=== PATIENT | male | born 1965 | race African-American/Black ===

== ENCOUNTER 2017-06-26 17:29 | Emergency (ER) | payer MEDICAID, OTHER ==
[~2017-06-26] VITALS: Ht 180.3 cm; Wt 136.0 kg
[~2017-06-26 17:29] MED LIST: AMLO2.5T2 PO; ASPI-986 PO; HCTZ; LOSARTAN
[2017-06-26] MEDS ORDERED: MORPHINE SULFATE 10 MG/ML CPJ IM ONE (20:00)
[2017-06-26] MEDS ORDERED: DEXAMETHASONE 4MG/ML 1ML VIAL IV ONE (20:00)
[2017-06-26 21:30] VITALS: BP 173/84
== END 2017-06-26 21:35 | disposition home or self-care (01) ==
LOC: ER 17:48
DX: M54.5 Low back pain (principal); M19.90 Unspecified osteoarthritis, unspecified site; I10 Essential (primary) hypertension; Z88.6 Allergy status to analgesic agent; Z88.8 Allergy status to other drugs, medicaments and biological substances; Z79.82 Long term (current) use of aspirin; W07.XXXA Fall from chair, initial encounter; Y93.89 Activity, other specified; Y92.89 Other specified places as the place of occurrence of the external cause; Y99.8 Other external cause status
CPT/HCPCS: 72100; 96372; 96374; 99284; J1100; J2270; Z7610

== ENCOUNTER 2018-02-04 16:05 | Inpatient (IN) | payer MEDICAID ==
[~2018-02-04] VITALS: Ht 180.3 cm; Wt 143.0 kg
[2018-02-04] MEDS ORDERED: MORPHINE SULFATE 4 MG/ML CPJ (NOT FOR IM USE) IV STA (17:32)
[2018-02-04] MEDS ORDERED: ONDANSETRON HCL 4MG/2ML INJ IV STA (17:32)
[2018-02-04] MEDS ORDERED: NITROGLYCERIN 0.4MG TABLET SL SL PRN (17:45)
[2018-02-04] MEDS ORDERED: ASPIRIN 81MG TABLET PO ONE (17:45)
[2018-02-04] MEDS ORDERED: NITROGLYCERIN OINT 1GM/INCH UDPKT TD ONE (17:45)
[2018-02-04 18:22] LABS: BASOPHILS % 0.5 % (0.0-2.0); EOSINOPHILS % 1.5 % (0.0-5.0); HEMATOCRIT. 44.4 % (42.0-52.0); HEMOGLOBIN. 15.1 g/dL (14.0-18.0); LYMPHOCYTES % 24.2 % (20.0-50.0); MEAN CORPUSCULAR HEMOGLOBIN 30.9 pg (28.0-32.0); MEAN CORPUSCULAR VOLUME 90.9 fL (80.0-94.0); MEAN PLATELET VOLUME 7.7 fl (7.4-10.4); MONOCYTES % 7.1 % (2.0-8.0); NEUTROPHILS % 66.7 % (40.0-76.0); PLATELET 280 x1000/uL (130-400); RED BLOOD CELL COUNT 4.89 mill/uL (4.7-6.1)
[2018-02-04 18:25] LABS: CHLORIDE 102 mEq/L (98-107)
[2018-02-04 18:28] LABS: INR 1.1; PARTIAL THROMBOPLASTIN TIME 28.4 sec (23.4-31.0); PROTHROMBIN TIME 10.8 sec (9.1-11.1)
[2018-02-04 19:24] LABS: *AMPHETAMINES SCREEN URINE NEGATIVE (NEGATIVE); *BARBITURATES SCREEN URINE NEGATIVE (NEGATIVE); *BENZODIAZEPINES SCREEN URINE NEGATIVE (NEGATIVE); CANNABINOID URINE SCREEN NEGATIVE (NEGATIVE)
[2018-02-04 19:25] LABS: *COCAINE SCREEN URINE NEGATIVE (NEGATIVE); METHADONE URINE SCREEN NEGATIVE (NEGATIVE); OPIATES URINE SCREEN NEGATIVE (NEGATIVE); PHENCYCLIDINE URINE SCREEN NEGATIVE (NEGATIVE)
[2018-02-04] MEDS ORDERED: ACETAMINOPHEN 650MG/20.3ML UDC GT PRN (20:30)
[2018-02-04] MEDS ORDERED: MAGNESIUM/ALUMINUM HYDROXIDE/SIMETHICONE 30ML UDC PO PRN (20:30)
[2018-02-04] MEDS ORDERED: ACETAMINOPHEN 325MG TABLET PO PRN (20:30)
[2018-02-04] MEDS ORDERED: CLONIDINE 0.1MG TABLET PO PRN (20:30)
[2018-02-04] MEDS ORDERED: POTASSIUM CHLORIDE 20MEQ TABLET SR PO NR (20:30)
[2018-02-04] MEDS ORDERED: ACETAMINOPHEN 650MG SUPP PR PRN (20:30)
[2018-02-04] MEDS ORDERED: ONDANSETRON HCL 4MG/2ML INJ IV PRN (20:30)
[2018-02-04 22:10] VITALS: BP 146/67
[2018-02-04 23:00] VITALS: BP 146/67
[2018-02-04] MEDS ORDERED: LOSA-20 PO (23:59)
[2018-02-04] MEDS ORDERED: MELO-106 PO (23:59)
[2018-02-05] VITALS: BP_SYST 127; BP_SYST 130; BP_DIAS 59; BP_DIAS 76
[2018-02-05] MEDS ORDERED: CHOL500063 PO (00:01)
[2018-02-05] MEDS ORDERED: CYCL10TA7 PO (00:02)
[2018-02-05] MEDS ORDERED: TRAM50TA3 PO (00:05)
[2018-02-05 00:38] LABS: CREATINE KINASE 471 IU/L (39-308)
[2018-02-05 00:39] LABS: CREATINE KINASE MB FRACTION 2.3 ng/mL (0.5-3.6)
[2018-02-05 04:00] VITALS: BP 116/48
[2018-02-05] MEDS: HYDROCODONE/ACETAMINOPHEN 5/325MG TABLET PO PRN ×2 (05:52→19:56)
[2018-02-05 07:15] LABS: BASOPHILS % 0.7 % (0.0-2.0); EOSINOPHILS % 2.1 % (0.0-5.0); HEMATOCRIT. 40.2 % (42.0-52.0); HEMOGLOBIN. 13.9 g/dL (14.0-18.0); MEAN CORPUSCULAR HEMOGLOBIN 31.5 pg (28.0-32.0); MEAN CORPUSCULAR VOLUME 91.2 fL (80.0-94.0); MEAN PLATELET VOLUME 7.6 fl (7.4-10.4); MONOCYTES % 8.6 % (2.0-8.0); NEUTROPHILS % 65.6 % (40.0-76.0); PLATELET 254 x1000/uL (130-400); RED CELL DISTRIBUTION WIDTH 13.8 % (11.6-14.6)
[2018-02-05 07:48] LABS: CHLORIDE 103 mEq/L (98-107)
[2018-02-05 07:59] LABS: LDL CHOLESTEROL 89 mg/dL (5-100)
[2018-02-05 08:00] LABS: CREATINE KINASE 363 IU/L (39-308); CREATINE KINASE MB FRACTION 1.7 ng/mL (0.5-3.6); HDL CHOLESTEROL 34 mg/dL (40-59); T4 FREE 0.91 ng/dL (0.76-1.46)
[2018-02-05 09:47] LABS: CLARITY URINE CLEAR (CLEAR); COLOR URINE YELLOW (YELLOW); KETONES URINE NEGATIVE (NEGATIVE); LEUKOCYTE ESTERASE URINE NEGATIVE (NEGATIVE); NITRITE URINE NEGATIVE (NEGATIVE); OCCULT BLOOD URINE NEGATIVE (NEGATIVE); PH URINE 6.5 (4.5-8.0); PROTEIN URINE NEGATIVE (NEGATIVE); SPECIFIC GRAVITY URINE 1.017 (1.005-1.030); UROBILINOGEN URINE 0.2 E.U./dL (0.2-1.0)
[2018-02-05] MEDS ORDERED: POTASSIUM CHLORIDE 20MEQ TABLET SR PO NR (13:00)
[2018-02-05] MEDS: CHOLECALCIFEROL (D3) 1000 UNIT TABLET PO SCH (15:34)
[2018-02-05 20:00] VITALS: BP 160/81
[2018-02-05] MEDS: METOPROLOL TARTRATE 25MG TABLET PO SCH (20:25)
[2018-02-05] MEDS: ATORVASTATIN CALCIUM 10MG TABLET PO SCH (20:25)
[2018-02-06] VITALS: BP 141/57
[2018-02-06 04:00] VITALS: BP 124/76
[2018-02-06 07:41] LABS: BASOPHILS % 0.9 % (0.0-2.0); EOSINOPHILS % 2.6 % (0.0-5.0); HEMATOCRIT. 40.6 % (42.0-52.0); HEMOGLOBIN. 14.3 g/dL (14.0-18.0); LYMPHOCYTES % 29.9 % (20.0-50.0); MEAN CORPUSCULAR HEMOGLOBIN 31.8 pg (28.0-32.0); MEAN CORPUSCULAR VOLUME 90.5 fL (80.0-94.0); MONOCYTES % 8.2 % (2.0-8.0); NEUTROPHILS % 58.4 % (40.0-76.0); PLATELET 218 x1000/uL (130-400); RED BLOOD CELL COUNT 4.48 mill/uL (4.7-6.1); RED CELL DISTRIBUTION WIDTH 13.7 % (11.6-14.6)
[2018-02-06 07:53] LABS: CHLORIDE 104 mEq/L (98-107)
[2018-02-06 08:00] VITALS: BP 165/80
[2018-02-06] MEDS: POTASSIUM CHLORIDE 20MEQ TABLET SR PO SCH (08:55)
[2018-02-06] MEDS: METOPROLOL TARTRATE 25MG TABLET PO SCH ×2 (08:56→20:55)
[2018-02-06] MEDS: CHOLECALCIFEROL (D3) 1000 UNIT TABLET PO SCH (08:56)
[2018-02-06] MEDS: HYDROCODONE/ACETAMINOPHEN 5/325MG TABLET PO PRN ×2 (08:57→20:57)
[2018-02-06] MEDS ORDERED: LOSARTAN POTASSIUM 25 MG TABLET PO SCH (09:00)
[2018-02-06 12:00] VITALS: BP 149/71
[2018-02-06] MEDS: LOSARTAN POTASSIUM 25 MG TABLET PO SCH (12:49)
[2018-02-06 16:00] VITALS: BP 145/68
[2018-02-06 20:00] VITALS: BP 182/71
[2018-02-06] MEDS: ATORVASTATIN CALCIUM 10MG TABLET PO SCH (20:56)
[2018-02-07] VITALS (7 sets, daily range): BP systolic 143–167; BP diastolic 64–77
[2018-02-07 07:46] LABS: BASOPHILS % 0.6 % (0.0-2.0); EOSINOPHILS % 3.8 % (0.0-5.0); HEMATOCRIT. 40.2 % (42.0-52.0); LYMPHOCYTES % 36.3 % (20.0-50.0); MEAN CORPUSCULAR HEMOGLOBIN 31.8 pg (28.0-32.0); MEAN CORPUSCULAR VOLUME 91.3 fL (80.0-94.0); MEAN PLATELET VOLUME 8.1 fl (7.4-10.4); MONOCYTES % 7.1 % (2.0-8.0); NEUTROPHILS % 52.2 % (40.0-76.0); PLATELET 244 x1000/uL (130-400); RED CELL DISTRIBUTION WIDTH 13.7 % (11.6-14.6)
[2018-02-07 07:54] LABS: CHLORIDE 105 mEq/L (98-107)
[2018-02-07] MEDS: LOSARTAN POTASSIUM 25 MG TABLET PO SCH (08:52)
[2018-02-07] MEDS: POTASSIUM CHLORIDE 20MEQ TABLET SR PO SCH (08:54)
[2018-02-07] MEDS: CHOLECALCIFEROL (D3) 1000 UNIT TABLET PO SCH (08:54)
[2018-02-07] MEDS: METOPROLOL TARTRATE 25MG TABLET PO SCH (08:54)
[2018-02-07] MEDS: HYDROCODONE/ACETAMINOPHEN 5/325MG TABLET PO PRN (09:02)
[2018-02-07 10:10] LABS: HEPATITIS B SURFACE ANTIGEN NEGATIVE
[2018-02-07 10:37] LABS: HEPATITIS B CORE AB IGM NEGATIVE
[2018-02-07 10:39] LABS: HEPATITIS A AB IGM NEGATIVE (NEGATIVE)
[2018-02-08] MEDS ORDERED: LOSARTAN POTASSIUM 50 MG TABLET PO SCH (09:00)
== END 2018-02-07 18:15 | disposition home or self-care (01) | DRG 203 ==
LOC: ER 16:05 → 5WST 17:56 → EDBEDREQ 17:57 → EDBEDREQTM 17:57 → EDRESERV 19:42 → ENRESERV 19:42 → CANRESERV 19:42
PROVIDERS: ADMIT Internal Medicine; ATTEND Internal Medicine
PROC: 5A09357 Assistance with Respiratory Ventilation, Less than 24 Consecutive Hours, Continuous Positive Airway Pressure (ICD-10-PCS; principal; 2018-02-05)
PROC: 5A09357 Assistance with Respiratory Ventilation, Less than 24 Consecutive Hours, Continuous Positive Airway Pressure (ICD-10-PCS; 2018-02-06)
PROC: 5A09357 Assistance with Respiratory Ventilation, Less than 24 Consecutive Hours, Continuous Positive Airway Pressure (ICD-10-PCS; 2018-02-07)
DX: M94.0 Chondrocostal junction syndrome [Tietze] (principal); I24.9 Acute ischemic heart disease, unspecified; E66.01 Morbid (severe) obesity due to excess calories; K76.0 Fatty (change of) liver, not elsewhere classified; I10 Essential (primary) hypertension; E87.6 Hypokalemia; M19.90 Unspecified osteoarthritis, unspecified site; Z96.659 Presence of unspecified artificial knee joint; G47.30 Sleep apnea, unspecified; E55.9 Vitamin D deficiency, unspecified; R74.0 Nonspecific elevation of levels of transaminase and lactic acid dehydrogenase [LDH]; E78.5 Hyperlipidemia, unspecified; I25.2 Old myocardial infarction; Z88.9 Allergy status to unspecified drugs, medicaments and biological substances; Z68.41 Body mass index [BMI] 40.0-44.9, adult
CPT/HCPCS: 36415; 71045; 76700; 80048; 80053; 80061; 80076; 80305; 81003; 82550; 82553; 82693; 83735; 83880; 84100; 84439; 84443; 84481; 84484; 85025; 85379; 85610; 85730; 86705; 86709; 86803; 87340; 93005; 93306; 94660; 96374; 96375; 99291; J2270; J2405; A4315

== ENCOUNTER 2024-11-17 15:33 | Emergency (ER) | payer MEDICAID, OTHER ==
[~2024-11-17] VITALS: Ht 180.3 cm; Wt 141.0 kg
[~2024-11-17 15:33] MED LIST changes: +ALOG25TA PO; -AMLO2.5T2 PO; +AMLO5TAB5 PO; +APIX5TAB MT; +ASPI-1497 PO; -ASPI-986 PO; +ATOR20TA65 PO; +CHOL500063 PO; +CYCL10TA21 PO; +FURO40TA5 PO; -HCTZ; +LOSA25TA26 PO; -LOSARTAN; +MELO-106 PO; +METO25TA6 MT; +TIRZ5PEN3; +TRAM50TA3 PO
[2024-11-17 15:41] VITALS: O2SAT 97
[2024-11-17 17:58] VITALS: BP 138/69; PULSE 66; RESP 16; TEMP 36.9; O2SAT 98
== END 2024-11-17 18:00 | disposition home or self-care (01) ==
LOC: ER 15:33
DX: S50.11XA Contusion of right forearm, initial encounter (principal); I25.2 Old myocardial infarction; I10 Essential (primary) hypertension; E11.9 Type 2 diabetes mellitus without complications; M19.90 Unspecified osteoarthritis, unspecified site; I48.91 Unspecified atrial fibrillation; Z88.6 Allergy status to analgesic agent; Z79.899 Other long term (current) drug therapy; X58.XXXA Exposure to other specified factors, initial encounter; Y93.89 Activity, other specified; Y92.89 Other specified places as the place of occurrence of the external cause; Y99.8 Other external cause status
CPT/HCPCS: 93971; 99284

== ENCOUNTER 2024-12-06 18:49 | Emergency (ER) | payer MEDICAID, OTHER ==
[~2024-12-06] VITALS: Ht 182.9 cm; Wt 150.0 kg
[2024-12-06 18:52] VITALS: O2SAT 97
[2024-12-06] MEDS: ACETAMINOPHEN 325MG TABLET PO ONE (20:57)
[2024-12-06 21:49] VITALS: BP 159/90; PULSE 85; RESP 20; TEMP 36.7; O2SAT 99
== END 2024-12-06 21:50 | disposition home or self-care (01) ==
LOC: ER 18:49
DX: M25.512 Pain in left shoulder (principal); M54.2 Cervicalgia; E11.9 Type 2 diabetes mellitus without complications; I10 Essential (primary) hypertension; I25.2 Old myocardial infarction; Z79.899 Other long term (current) drug therapy; Z88.6 Allergy status to analgesic agent
CPT/HCPCS: 71045; 73030; 99284

== ENCOUNTER 2025-02-24 21:33 | Emergency (ER) | payer OTHER ==
[~2025-02-24] VITALS: Ht 180.3 cm; Wt 143.0 kg
[~2025-02-24 21:33] MED LIST changes: -AMLO5TAB5 PO; +AMLO5TAB6 PO
[2025-02-24 21:48] VITALS: O2SAT 98
[2025-02-25] MEDS: LIDOCAINE HCL 1% 20ML VIAL INFIL ONE (00:30)
[2025-02-25] MEDS: ACETAMINOPHEN 325MG TABLET PO ONE (00:49)
[2025-02-25] MEDS: TETANUS, DIPHTHERIA, PERTUSSIS VAC/PF 0.5ML (>10YR OLD) IM ONE (01:03)
[2025-02-25] MEDS ORDERED: AMOX1TAB16 MT (01:26)
[2025-02-25 01:38] VITALS: BP 135/61; PULSE 85; RESP 16; TEMP 37; O2SAT 100
== END 2025-02-25 01:40 | disposition home or self-care (01) ==
LOC: ER 21:33
DX: S20.311A Abrasion of right front wall of thorax, initial encounter (principal); I10 Essential (primary) hypertension; I25.2 Old myocardial infarction; E11.9 Type 2 diabetes mellitus without complications; Z79.899 Other long term (current) drug therapy; Z88.6 Allergy status to analgesic agent; W54.0XXA Bitten by dog, initial encounter; Y93.89 Activity, other specified; Y92.89 Other specified places as the place of occurrence of the external cause; Y99.8 Other external cause status
CPT/HCPCS: 99283; 90715; 90471; J2003; Z7610

== ENCOUNTER 2025-04-28 15:46 | Emergency (ER) | payer OTHER ==
[~2025-04-28] VITALS: Ht 180.3 cm; Wt 141.0 kg
[~2025-04-28 15:46] MED LIST changes: +AMOX1TAB16 MT
[2025-04-28 16:14] VITALS: O2SAT 98
[2025-04-28 17:05] LABS: BASOPHILS % 0.5 % (0.0-2.0); EOSINOPHILS % 1.1 % (0.0-5.0); HEMATOCRIT. 45.9 % (42.0-52.0); HEMOGLOBIN. 15.3 g/dL (14.0-18.0); LYMPHOCYTES % 22.1 % (20.0-50.0); MEAN PLATELET VOLUME 7.5 fl (7.4-10.4); MONOCYTES % 6.5 % (2.0-8.0); NEUTROPHILS % 69.8 % (40.0-76.0); PLATELET 282 x1000/uL (130-400); RED BLOOD CELL COUNT 5.06 mill/uL (4.7-6.1); RED CELL DISTRIBUTION WIDTH 14.4 % (11.6-14.6)
[2025-04-28 17:15] LABS: INR 1.1
[2025-04-28 17:20] LABS: CREATININE 1.1 mg/dL (0.6-1.3); UREA NITROGEN BLOOD 12 mg/dL (9-23)
[2025-04-28 17:21] LABS: TROPONIN I HIGH SENSITIVITY 9 ng/L (3.0-53)
[2025-04-28] MEDS: ASPIRIN 81MG TABLET PO SCH (18:19)
[2025-04-28] MEDS: ASPIRIN 325MG TABLET PO ONE (18:20)
[2025-04-28 21:07] LABS: TROPONIN I HIGH SENSITIVITY 10 ng/L (3.0-53)
[2025-04-28 22:03] VITALS: BP 138/76; PULSE 68; RESP 18; TEMP 37; O2SAT 98
== END 2025-04-28 22:05 | disposition home or self-care (01) ==
LOC: ER 15:46
DX: I25.9 Chronic ischemic heart disease, unspecified (principal); E11.9 Type 2 diabetes mellitus without complications; I11.9 Hypertensive heart disease without heart failure; I48.91 Unspecified atrial fibrillation; M19.90 Unspecified osteoarthritis, unspecified site; Z79.01 Long term (current) use of anticoagulants; Z79.1 Long term (current) use of non-steroidal anti-inflammatories (NSAID); Z79.899 Other long term (current) drug therapy; Z88.6 Allergy status to analgesic agent
CPT/HCPCS: 80048; 85025; 85610; 85730; 84484; 36415; 71045; 93005; 99285; Z7610